=== PATIENT | female | born 1990 | race African-American/Black ===

== ENCOUNTER 2016-06-05 08:03 | Emergency (ER) | payer MEDICAID ==
[~2016-06-05] VITALS: Ht 165.1 cm; Wt 110.2 kg
[~2016-06-05 08:03] MED LIST: CALCIUM CARBON600 M4 PO; FERROUS SULFAT325 M1 PO; MOTRIN800 MG PO; PRENATAL VITAMI1 T10 PO; VITAMIN D PO
[2016-06-05 08:08] VITALS: BP 125/63
--- NOTE | 2016-06-05 08:15 | NUR ---
Patient ambulated to bed 6. 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
--- NOTE | 2016-06-05 08:29 | NUR ---
26/F presents to ED for evaluation of abdominal pain since last night around 0100. Pt states "I think I ate something bad last night." Pt also c/o nausea and vomiting since 0100 last night. Patient states she has had over 10 episodes of vomiting and diarrhea. Patient states "It has been non stop." Patient describes pain as "it feels like a knot," constant, non radiating, 12/02. Patient is AOX4, ambulatory with steady gait. VSS at this time.
[2016-06-05] MEDS ORDERED: NACL 0.9% 1,000 ML IV SCH (08:33)
[2016-06-05] MEDS ORDERED: ONDANSETRON 4 MG/2 ML VIAL IVP ONE (08:35)
[2016-06-05] MEDS ORDERED: FAMOTIDINE 20 MG/2 ML VIAL IVP ONE (08:35)
--- NOTE | 2016-06-05 09:15 | NUR ---
Patient resting comfortably at this time. Nausea resolved. Patient is calm and relaxed at this time. Warm blanket provided and placed in position of comfort. VSS. IV fluids running, patient tolerating well.
--- NOTE | 2016-06-05 09:43 | NUR ---
Patient appears to be resting comfortably in bed. Vital Signs within normal limits. Respirations even and unlabored.
[2016-06-05] MEDS ORDERED: ACETAMINOPHEN EXTRA STRENGTH 500 MG TAB PO ONE (10:20)
[2016-06-05] MEDS ORDERED: diphenhydrAMINE 50 MG/ML VIAL IVP ONE (10:20)
--- NOTE | 2016-06-05 10:56 | NUR ---
Family at bedside. Pt resting comfortably and in no signs of distress.
--- NOTE | 2016-06-05 11:23 | NUR ---
Patient appears to be resting comfortably in bed. Vital Signs within normal limits. Respirations even and unlabored.
--- NOTE | 2016-06-05 11:32 | NUR ---
Patient being evaluated by physician at bedside.
--- NOTE | 2016-06-05 11:40 | NUR ---
IV removed, catheter intact and site benign. Applied folded 4x4 gauze and tape to stop bleeding.
[2016-06-05 12:25] VITALS: BP 122/71
--- NOTE | 2016-06-05 12:26 | NUR ---
Patient discharged with v/s stable. Written and verbal after care instructions given and explained. Patient alert, oriented and verbalized understanding of instructions. Ambulatory with steady gait. All questions addressed prior to discharge. ID band removed. Patient advised to follow up with PMD. Rx of ZOFRAN, TYLENOL, PEPCID given. Patient educated on indication of medication including possible reaction and side effects. Opportunity to ask questions provided and answered.
== END 2016-06-05 12:10 | disposition home or self-care (01) ==
LOC: MED 08:03
DX: K52.9 Noninfective gastroenteritis and colitis, unspecified (principal); G43.909 Migraine, unspecified, not intractable, without status migrainosus; R03.0 Elevated blood-pressure reading, without diagnosis of hypertension; F17.200 Nicotine dependence, unspecified, uncomplicated; J45.909 Unspecified asthma, uncomplicated; Z71.6 Tobacco abuse counseling
CPT/HCPCS: 36415; 80053; 81001; 81025; 82150; 83690; 85025; 96361; 96374; 96375; 99284; J1200; J2405; J3490; J7030

== ENCOUNTER 2018-02-03 16:35 | Emergency (ER) | payer MEDICAID ==
[~2018-02-03] VITALS: Ht 165.1 cm; Wt 107.5 kg
[~2018-02-03 16:35] MED LIST changes: -CALCIUM CARBON600 M4 PO; -FERROUS SULFAT325 M1 PO; -MOTRIN800 MG PO; -PRENATAL VITAMI1 T10 PO; +VITA-16 PO; -VITAMIN D PO
[2018-02-03 16:40] VITALS: BP 126/63
[2018-02-03] MEDS ORDERED: IBUPROFEN 600 MG TAB PO ONE (17:05)
[2018-02-03] MEDS ORDERED: traMADol 50 MG TAB PO ONE (17:05)
[2018-02-03 17:24] LABS: APPEARANCE,URINE CLEAR (CLEAR); BILIRUBIN,URINE NEGATIVE (NEGATIVE); BLOOD, URINE 3+ (NEGATIVE); COLOR,URINE YELLOW (YELLOW); LEUKOCYTE ESTERASE ,URINE NEGATIVE (NEGATIVE); NITRITE, URINE NEGATIVE (NEGATIVE); UGLUCOSE NEGATIVE (NEGATIVE)
[2018-02-03 17:39] VITALS: BP 126/63
[2018-02-03 17:41] LABS: BARBITURATE, URINE NEG. ng/ml (NEG <=200); BENZODIAZEPINE, URINE NEG. ng/mL (NEG <=200); CANNABINOID, URINE POS. ng/mL (NEG <=50); COCAINE, URINE NEG. ng/mL (NEG <=300); OPIATE, URINE NEG. ng/mL (NEG <=2000); PHENCYCLIDINE SCREEN,URINE NEG. ng/mL (NEG <=25)
[2018-02-03 17:42] LABS: RBC,URINE 50-80 /HPF (0-5); WBC,URINE 0-5 (RARE) /HPF (0-5)
== END 2018-02-03 17:40 | disposition home or self-care (01) ==
LOC: MED 16:35
DX: S83.92XA Sprain of unspecified site of left knee, initial encounter (principal); J45.909 Unspecified asthma, uncomplicated; Z79.899 Other long term (current) drug therapy; W22.8XXA Striking against or struck by other objects, initial encounter; Y93.89 Activity, other specified; Y92.481 Parking lot as the place of occurrence of the external cause; Y99.8 Other external cause status
CPT/HCPCS: 73562; 80305; 81001; 81025; 99285

== ENCOUNTER 2020-08-09 23:02 | Emergency (ER) | payer MEDICAID ==
[~2020-08-09] VITALS: Ht 165.1 cm; Wt 95.3 kg
[2020-08-09 23:06] VITALS: BP 121/68
[2020-08-09] MEDS ORDERED: HYDROcodone/APAP 5/325 MG 1 TAB TAB PO ONE (23:45)
[2020-08-10] MEDS ORDERED: ACET-9882 PO (02:12)
[2020-08-10] MEDS ORDERED: IBUP-1842 PO (02:12)
[2020-08-10] MEDS ORDERED: HYDR-5080 PO (02:12)
[2020-08-10 02:30] VITALS: BP 121/68
== END 2020-08-10 02:30 | disposition home or self-care (01) ==
LOC: MED 23:02
DX: S82.401A Unspecified fracture of shaft of right fibula, initial encounter for closed fracture (principal); J45.909 Unspecified asthma, uncomplicated; W19.XXXA Unspecified fall, initial encounter; Y93.89 Activity, other specified; Y92.89 Other specified places as the place of occurrence of the external cause; Y99.8 Other external cause status
CPT/HCPCS: 29515; 73610; 99283

== ENCOUNTER 2021-02-04 07:28 | Emergency (ER) | payer MEDICAID ==
[~2021-02-04] VITALS: Ht 170.2 cm; Wt 119.3 kg
[~2021-02-04 07:28] MED LIST changes: +ACET-9882 PO; +HYDR-5080 PO; +IBUP-1842 PO
[2021-02-04 07:42] VITALS: BP 108/68
[2021-02-04] MEDS ORDERED: ALBU0.0912 IH (08:14)
[2021-02-04] MEDS ORDERED: BENZ-196 PO (08:14)
[2021-02-04 09:20] VITALS: BP 108/68
--- NOTE | 2021-02-04 09:20 | NUR ---
NO NURSING INTERVENTIONS PROVIDED.
--- NOTE | 2021-02-04 09:21 | NUR ---
Patient discharged with v/s stable. Written and verbal after care instructions given and explained. Patient alert, oriented and verbalized understanding of instructions. Ambulatory with steady gait. All questions addressed prior to discharge. ID band removed. Patient advised to follow up with PMD. Rx of PROVENTIL AND TESSALON PERLE given. Patient educated on indication of medication including possible reaction and side effects. Opportunity to ask questions provided and answered.
== END 2021-02-04 09:20 | disposition home or self-care (01) ==
LOC: MED 07:28
DX: J06.9 Acute upper respiratory infection, unspecified (principal); Z20.822 Contact with and (suspected) exposure to COVID-19
CPT/HCPCS: 99283

== ENCOUNTER 2021-09-07 22:36 | Emergency (ER) | payer MEDICAID ==
[~2021-09-07 22:36] MED LIST changes: +ALBU0.0912 IH; +BENZ-196 PO
--- NOTE | 2021-09-07 23:01 | NUR ---
LWBS AT [id number]
== END 2021-09-07 23:01 | disposition left against medical advice (07) ==
LOC: MED 22:36
DX: M25.579 Pain in unspecified ankle and joints of unspecified foot (principal); Z53.21 Procedure and treatment not carried out due to patient leaving prior to being seen by health care provider

== ENCOUNTER 2021-11-04 20:29 | Emergency (ER) | payer MEDICAID ==
[~2021-11-04] VITALS: Ht 167.6 cm; Wt 99.8 kg
[2021-11-04 20:51] VITALS: BP 106/58
--- NOTE | 2021-11-04 20:57 | NUR ---
TO LOBBY FOLLOWING TRIAGE
--- NOTE | 2021-11-04 23:17 | NUR ---
PT CAME TO ADMITTING WINDOW AND SAID SHE WAS LEAVING NOW. LWBS
== END 2021-11-04 23:17 | disposition left against medical advice (07) ==
LOC: MED 20:29
DX: S60.569A Insect bite (nonvenomous) of unspecified hand, initial encounter (principal); X58.XXXA Exposure to other specified factors, initial encounter; Y93.89 Activity, other specified; Y92.89 Other specified places as the place of occurrence of the external cause; Y99.8 Other external cause status; Z53.21 Procedure and treatment not carried out due to patient leaving prior to being seen by health care provider

== ENCOUNTER 2021-12-02 18:14 | Emergency (ER) | payer MEDICAID ==
[~2021-12-02] VITALS: Ht 165.1 cm; Wt 120.7 kg
[2021-12-02 18:27] VITALS: BP 128/67
--- NOTE | 2021-12-02 18:30 | NUR ---
TENT 1
[2021-12-02] MEDS ORDERED: CEPH-588 PO (19:10)
[2021-12-02] MEDS ORDERED: DIPH-735 PO (19:10)
[2021-12-02 20:40] VITALS: BP 128/67
== END 2021-12-02 20:40 | disposition home or self-care (01) ==
LOC: MED 18:14
DX: N39.0 Urinary tract infection, site not specified (principal); J45.909 Unspecified asthma, uncomplicated; Z79.899 Other long term (current) drug therapy
CPT/HCPCS: 81002; 81025; 99283

== ENCOUNTER 2022-05-08 21:51 | Emergency (ER) | payer MEDICAID ==
[~2022-05-08] VITALS: Ht 165.1 cm; Wt 95.3 kg
[~2022-05-08 21:51] MED LIST changes: +CEPH-588 PO; +DIPH-735 PO
[2022-05-08 21:59] VITALS: BP 125/74
--- NOTE | 2022-05-08 22:02 | NUR ---
TO LOBBY A/W BED AMBULATORY
--- NOTE | 2022-05-08 22:06 | NUR ---
TO BED 12, AMBULATORY
--- NOTE | 2022-05-08 22:10 | NUR ---
RECEIVED IN BED 12 WITH C/O LEFT ANKLE SWELLING AND PAIN, S/P TWISTED YESTERDAY,
[2022-05-08] MEDS ORDERED: IBUPROFEN 600 MG TAB PO ONE (23:00)
[2022-05-09] MEDS ORDERED: NAPR-54 PO (00:30)
--- NOTE | 2022-05-09 00:52 | NUR ---
PT CLEARED FOR D/C. ALL D/C INSTRUCTIONS AND MEDICATION INFORMATION PROVIDED BY DR. HALE. RX OF NAPROSYN PROVIDED
== END 2022-05-09 00:52 | disposition home or self-care (01) ==
LOC: MED 21:51
DX: S82.492A Other fracture of shaft of left fibula, initial encounter for closed fracture (principal); J45.909 Unspecified asthma, uncomplicated; F17.200 Nicotine dependence, unspecified, uncomplicated; X58.XXXA Exposure to other specified factors, initial encounter; Y93.89 Activity, other specified; Y92.89 Other specified places as the place of occurrence of the external cause; Y99.8 Other external cause status
CPT/HCPCS: 29515; 73610; 99283; Q0092

== ENCOUNTER 2023-09-20 22:07 | Emergency (ER) | payer OTHER, MEDICAID ==
[~2023-09-20] VITALS: Ht 170.2 cm; Wt 117.9 kg
[~2023-09-20 22:07] MED LIST changes: +NAPR-337 PO
[2023-09-20 22:13] VITALS: BP 139/104; PULSE 84; RESP 16; TEMP 98.3; O2SAT 98
[2023-09-20 22:32] VITALS: BP 139/104; PULSE 84; RESP 16; TEMP 98.3; O2SAT 98
== END 2023-09-20 22:32 | disposition home or self-care (01) ==
LOC: MED 22:07
DX: Z02.89 Encounter for other administrative examinations (principal); Z79.899 Other long term (current) drug therapy; V49.88XA Car occupant (driver) (passenger) injured in other specified transport accidents, initial encounter; Y93.89 Activity, other specified; Y92.89 Other specified places as the place of occurrence of the external cause; Y99.8 Other external cause status
CPT/HCPCS: 99283